=== PATIENT | female | born 1950 | race Two or more races ===

== ENCOUNTER 2017-07-28 16:34 | Inpatient (IN) | payer MEDICARE, OTHER ==
[2017-07-28] MEDS: SOD CHLORIDE 0.9% 500 ML IV (23:51)
[2017-07-28] MEDS: ONDANSETRON 4 MG INJ IV (23:51)
[2017-07-28] MEDS: morphine 4 MG/ML VIAL IV (23:51)
[2017-07-28 23:58] LABS: ADD MAN DIFF? NO
[2017-07-29 00:01] LABS: BASOPHIL # 0.1 10^3/ul (0.0-0.1); BASOPHILS % 0.6 % (0.0-2.0); EOSINOPHILS # 0.3 10^3/ul (0.0-0.5); HEMATOCRIT 36.6 % (37.0-47.0); HEMOGLOBIN 11.9 g/dl (12.0-16.0); LYMPHOCYTES # 3.1 10^3/ul (0.8-2.9); LYMPHOCYTES % 30.4 % (15.0-51.0); MEAN CORPUSCULAR HEMOGLOBIN 29.9 pg (29.0-33.0); MEAN CORPUSCULAR HGB CONC 32.5 g/dl (32.0-37.0); MEAN PLATELET VOLUME 9.9 fl (7.4-10.4); MONOCYTE # 0.7 10^3/ul (0.3-0.9); MONOCYTES % 6.5 % (0.0-11.0); PLATELET COUNT 222 10^3/UL (140-415); RED BLOOD COUNT 3.98 10^6/ul (4.20-5.40); RED CELL DISTRIBUTION WIDTH 13.6 % (11.5-14.5)
[2017-07-29 00:01] LABS: WHITE BLOOD COUNT 10.1 10^3/ul (4.8-10.8)
[2017-07-29 00:04] LABS: INR 1.09; PROTIME 14.2 Sec (11.9-14.9); PT RATIO 1.1
[2017-07-29 00:05] LABS: PARTIAL THROMBOPLASTIN TIME 29.9 Sec (25.0-35.0)
[2017-07-29 00:07] LABS: ALANINE AMINOTRANSFERASE 45 IU/L (13-69); ALBUMIN 4.2 g/dl (3.3-4.9); ALKALINE PHOSPHATASE 96 IU/L (42-121); ANION GAP 17 (8-16); ASPARTATE AMINO TRANSFERASE 60 IU/L (15-46); BLOOD UREA NITROGEN 36 mg/dl (7-20); CALCIUM 9.4 mg/dl (8.4-10.2); CARBON DIOXIDE 27 mmol/L (21-31); CHLORIDE 109 mmol/L (97-110); CREATININE 1.08 mg/dl (0.44-1.00); GLUCOSE 134 mg/dl (70-220); LIPASE 142 U/L (23-300); POTASSIUM 4.5 mmol/L (3.5-5.1); SODIUM 148 mmol/L (135-144); TOTAL PROTEIN 8.4 g/dl (6.1-8.1)
[2017-07-29 00:18] LABS: LACTIC ACID 1.3 mmol/L (0.5-2.0)
[2017-07-29 00:19] LABS: TROPONIN-I < 0.012 ng/ml (0.00-0.12)
[2017-07-29 00:25] LABS: ADD UMIC YES; UR ASCORBIC ACID 20 mg/dL (NEGATIVE); UR BILIRUBIN (Dip) NEGATIVE (NEGATIVE); UR BLOOD (Dip) 2+ mg/dL (NEGATIVE); UR CLARITY SLIGHTLY CLOUDY (CLEAR); UR COLOR YELLOW (YELLOW); UR GLUCOSE (Dip) NEGATIVE (NEGATIVE); UR KETONES (Dip) NEGATIVE (NEGATIVE); UR LEUKOCYTE ESTERASE (Dip) 3+ Leu/ul (NEGATIVE); UR NITRITE (Dip) NEGATIVE (NEGATIVE); UR RBC 12 /HPF (0-5); UR SPECIFIC GRAVITY (Dip) 1.013 (1.003-1.030); UR TOTAL PROTEIN (Dip) NEGATIVE (NEGATIVE); UR UROBILINOGEN (Dip) NEGATIVE (NEGATIVE); UR WBC 141 /HPF (0-5)
[2017-07-29] MEDS ORDERED: ACETAMINOPHEN 325 MG TAB PO (05:30)
[2017-07-29] MEDS ORDERED: NACL 0.9% 3 ML SYG IV (05:30)
[2017-07-29] MEDS ORDERED: ZOLPIDEM 5 MG TAB PO (05:30)
[2017-07-29] MEDS ORDERED: DOCUSATE SODIUM 100 MG CAP PO (05:30)
[2017-07-29] MEDS ORDERED: ONDANSETRON 4 MG INJ IV ×2 (05:30→11:30)
[2017-07-29] MEDS ORDERED: morphine 2 MG INJ IV (05:30)
[2017-07-29] MEDS: SOD CHLORIDE 0.45% 1,000 ML IV (05:58)
[2017-07-29] MEDS ORDERED: LIDOCAINE 2% (SDV) 5 ML INJ (07:00)
[2017-07-29] MEDS ORDERED: FENTAnyl 50 MCG/ML VIAL (10:53)
[2017-07-29] MEDS ORDERED: PROPOFOL 20 ML (11:07)
[2017-07-29] MEDS ORDERED: SUGAMMADEX SODIUM 200 MG/2 ML VIAL IV (11:07)
[2017-07-29] MEDS ORDERED: CEFAZOLIN 1 GM INJ (11:07)
[2017-07-29] MEDS ORDERED: ROCURONIUM 50 MG INJ (11:07)
[2017-07-29] MEDS ORDERED: SUCCINYLCHOLINE CHLORIDE 100 MG/5 ML SYG IV (11:07)
[2017-07-29] MEDS ORDERED: MEPERIDINE 25 MG INJ IV (11:30)
[2017-07-29] MEDS ORDERED: HYDROmorphONE (0.2 MG/ML) 10ML SYG IV ×2 (11:30)
[2017-07-29] MEDS ORDERED: METOCLOPRAMIDE 10 MG INJ IV (11:30)
[2017-07-29] MEDS ORDERED: DIPHENHYDRAMINE 50 MG INJ IV (11:30)
[2017-07-29] MEDS ORDERED: FENTAnyl 50 MCG/ML VIAL IV (11:30)
[2017-07-29] MEDS: FENTAnyl 50 MCG/ML VIAL IV (11:39)
[2017-07-29] MEDS: ATENOLOL 25 MG TAB PO (13:12)
[2017-07-29] MEDS: LOSARTAN 25 MG TAB PO (13:12)
[2017-07-29] MEDS: HYDROCHLOROTHIAZIDE 12.5 MG CAP PO (13:12)
[2017-07-30 05:58] LABS: ADD MAN DIFF? NO
[2017-07-30 06:05] LABS: WHITE BLOOD COUNT 8.7 10^3/ul (4.8-10.8)
[2017-07-30 06:05] LABS: BASOPHILS % 0.3 % (0.0-2.0); EOSINOPHILS # 0.3 10^3/ul (0.0-0.5); EOSINOPHILS % 3.4 % (0.0-7.0); HEMATOCRIT 35.2 % (37.0-47.0); HEMOGLOBIN 11.4 g/dl (12.0-16.0); LYMPHOCYTES # 2.6 10^3/ul (0.8-2.9); LYMPHOCYTES % 29.7 % (15.0-51.0); MEAN CORPUSCULAR HEMOGLOBIN 29.6 pg (29.0-33.0); MEAN CORPUSCULAR HGB CONC 32.4 g/dl (32.0-37.0); MEAN CORPUSCULAR VOLUME 91.4 fl (82.0-101.0); MEAN PLATELET VOLUME 9.8 fl (7.4-10.4); MONOCYTE # 0.6 10^3/ul (0.3-0.9); MONOCYTES % 6.9 % (0.0-11.0); NEUTROPHIL # 5.2 10^3/ul (1.6-7.5); NEUTROPHILS % 59.4 % (39.0-77.0); PLATELET COUNT 200 10^3/UL (140-415); RED BLOOD COUNT 3.85 10^6/ul (4.20-5.40); RED CELL DISTRIBUTION WIDTH 13.3 % (11.5-14.5)
[2017-07-30 07:16] LABS: ANION GAP 14 (8-16); BLOOD UREA NITROGEN 28 mg/dl (7-20); CALCIUM 8.9 mg/dl (8.4-10.2); CARBON DIOXIDE 28 mmol/L (21-31); CHLORIDE 109 mmol/L (97-110); CREATININE 1.01 mg/dl (0.44-1.00); GLUCOSE 133 mg/dl (70-220); MAGNESIUM 1.9 mg/dl (1.7-2.5); PHOSPHORUS 3.6 mg/dl (2.5-4.9); POTASSIUM 4.4 mmol/L (3.5-5.1); SODIUM 147 mmol/L (135-144)
[2017-07-30] MEDS: ATENOLOL 25 MG TAB PO (08:59)
[2017-07-30] MEDS: LOSARTAN 25 MG TAB PO (08:59)
[2017-07-30] MEDS: HYDROCHLOROTHIAZIDE 12.5 MG CAP PO (09:00)
[2017-07-30] MEDS: HYDROCODONE/APAP (5/325) TAB PO (12:54)
== END 2017-07-30 14:15 | disposition home or self-care (01) | DRG 744 ==
LOC: E/R 16:34 → MS2 07-29 02:05
PROVIDERS: Internal Medicine
PROC: 0UDB8ZZ Extraction of Endometrium, Via Natural or Artificial Opening Endoscopic (ICD-10-PCS; principal; 2017-07-29 10:47)
DX: N95.0 Postmenopausal bleeding (principal); E87.0 Hyperosmolality and hypernatremia; E66.01 Morbid (severe) obesity due to excess calories; Z68.38 Body mass index [BMI] 38.0-38.9, adult; N93.8 Other specified abnormal uterine and vaginal bleeding; D64.9 Anemia, unspecified; E86.0 Dehydration
CPT/HCPCS: 80048; 80053; 81001; 83605; 83690; 83735; 84100; 84484; 85025; 85610; 85730; 88305; 93005

== ENCOUNTER 2017-12-08 09:59 | Emergency (ER) | payer MEDICARE, OTHER ==
[2017-12-08 10:34] LABS: ADD MAN DIFF? NO
[2017-12-08 10:45] LABS: BASOPHILS % 0.4 % (0.0-2.0); EOSINOPHILS # 0.1 10^3/ul (0.0-0.5); EOSINOPHILS % 1.4 % (0.0-7.0); HEMATOCRIT 33.7 % (37.0-47.0); HEMOGLOBIN 10.9 g/dl (12.0-16.0); LYMPHOCYTES # 1.9 10^3/ul (0.8-2.9); LYMPHOCYTES % 19.8 % (15.0-51.0); MEAN CORPUSCULAR HGB CONC 32.3 g/dl (32.0-37.0); MEAN CORPUSCULAR VOLUME 89.6 fl (82.0-101.0); MEAN PLATELET VOLUME 9.9 fl (7.4-10.4); MONOCYTE # 0.9 10^3/ul (0.3-0.9); MONOCYTES % 9.1 % (0.0-11.0); NEUTROPHIL # 6.5 10^3/ul (1.6-7.5); NEUTROPHILS % 68.8 % (39.0-77.0); PLATELET COUNT 259 10^3/UL (140-415); RED BLOOD COUNT 3.76 10^6/ul (4.20-5.40); RED CELL DISTRIBUTION WIDTH 13.2 % (11.5-14.5)
[2017-12-08 10:45] LABS: WHITE BLOOD COUNT 9.5 10^3/ul (4.8-10.8)
[2017-12-08 11:04] LABS: ALANINE AMINOTRANSFERASE 41 IU/L (13-69); ALBUMIN 3.9 g/dl (3.3-4.9); ALBUMIN/GLOBULIN RATIO 0.86; ALKALINE PHOSPHATASE 94 IU/L (42-121); ANION GAP 18 (8-16); ASPARTATE AMINO TRANSFERASE 42 IU/L (15-46); BILIRUBIN,INDIRECT 0.4 mg/dl (0-1.1); BILIRUBIN,TOTAL 0.4 mg/dl (0.2-1.3); BLOOD UREA NITROGEN 38 mg/dl (7-20); CALCIUM 9.5 mg/dl (8.4-10.2); CARBON DIOXIDE 23 mmol/L (21-31); CHLORIDE 107 mmol/L (97-110); CREATININE 1.51 mg/dl (0.44-1.00); GLUCOSE 188 mg/dl (70-220); POTASSIUM 4.7 mmol/L (3.5-5.1); SODIUM 143 mmol/L (135-144); TOTAL PROTEIN 8.4 g/dl (6.1-8.1)
[2017-12-08 11:14] LABS: B-TYPE NATRIURETIC PEPTIDE 116 PG/ML (0-125); TROPONIN-I < 0.012 ng/ml (0.000-0.120)
[2017-12-08 11:45] LABS: ADD UMIC YES; UR ASCORBIC ACID NEGATIVE (NEGATIVE); UR BACTERIA FEW /HPF (NONE SEEN); UR BILIRUBIN (Dip) NEGATIVE (NEGATIVE); UR BLOOD (Dip) 3+ mg/dL (NEGATIVE); UR CLARITY CLOUDY (CLEAR); UR COLOR YELLOW (YELLOW); UR GLUCOSE (Dip) NEGATIVE (NEGATIVE); UR KETONES (Dip) NEGATIVE (NEGATIVE); UR LEUKOCYTE ESTERASE (Dip) 3+ Leu/ul (NEGATIVE); UR MUCUS FEW /HPF (NONE SEEN); UR NITRITE (Dip) POSITIVE (NEGATIVE); UR RBC 39 /HPF (0-5); UR SPECIFIC GRAVITY (Dip) 1.011 (1.003-1.030); UR TOTAL PROTEIN (Dip) NEGATIVE (NEGATIVE); UR UROBILINOGEN (Dip) NEGATIVE (NEGATIVE); UR WBC > 182 /HPF (0-5)
[2017-12-08] MEDS: SOD CHLORIDE 0.9% 1,000 ML IV (13:11)
[2017-12-08] MEDS: CEFTRIAXONE 1 GM/50 ML (PMX) 50 ML IVPB (13:12)
== END 2017-12-08 14:46 | disposition home or self-care (01) ==
LOC: E/R 09:59
DX: N30.00 Acute cystitis without hematuria (principal); I10 Essential (primary) hypertension; E11.9 Type 2 diabetes mellitus without complications; Z79.84 Long term (current) use of oral hypoglycemic drugs
CPT/HCPCS: 36415; 71045; 80053; 81001; 82962; 83880; 84484; 85025; 87086; 93005; 96374; 99285-25

== ENCOUNTER 2018-09-23 10:01 | Day surgery (SDC) | payer MEDICARE, OTHER ==
[2018-09-23] MEDS ORDERED: FENTAnyl 50 MCG/ML VIAL (14:56)
[2018-09-23] MEDS ORDERED: MIDAZOLAM 1 MG/ML 2 ML INJ (14:56)
[2018-09-23] MEDS: TRIAMCINOLONE ACET 40 MG/ML INJ (15:36)
[2018-09-23] MEDS ORDERED: CEFAZOLIN 1 GM INJ (15:47)
[2018-09-23] MEDS ORDERED: PROPOFOL 20 ML (15:47)
[2018-09-23] MEDS ORDERED: ONDANSETRON 4 MG INJ (15:47)
[2018-09-23] MEDS ORDERED: LIDOCAINE 2% (SDV) 5 ML INJ (15:47)
[2018-09-23] MEDS ORDERED: LABETALOL HCL 20MG INJ IV (16:30)
[2018-09-23] MEDS ORDERED: KETOROLAC 30 MG INJ IV (16:30)
[2018-09-23] MEDS ORDERED: FENTAnyl 50 MCG/ML VIAL IV (16:30)
[2018-09-23] MEDS ORDERED: MEPERIDINE 25 MG INJ IV (16:30)
[2018-09-23] MEDS ORDERED: DIPHENHYDRAMINE 50 MG INJ IV (16:30)
[2018-09-23] MEDS ORDERED: METOCLOPRAMIDE 10 MG INJ IV (16:30)
[2018-09-23] MEDS ORDERED: HYDROmorphONE 1 MG/5 ML IV SYRINGE IV ×2 (16:30)
[2018-09-23] MEDS ORDERED: hydrALAzine 20 MG INJ IV (16:30)
[2018-09-23] MEDS ORDERED: OXYCODONE/ACETAMINOPHEN (5/325) TAB PO (16:30)
[2018-09-23] MEDS ORDERED: ONDANSETRON 4 MG INJ IV (16:30)
== END 2018-09-23 18:50 | disposition home or self-care (01) ==
LOC: SDS 10:01
DX: N35.92 Unspecified urethral stricture, female (principal); N39.0 Urinary tract infection, site not specified; N20.0 Calculus of kidney; I10 Essential (primary) hypertension; E11.9 Type 2 diabetes mellitus without complications; E78.5 Hyperlipidemia, unspecified; J44.9 Chronic obstructive pulmonary disease, unspecified; Z79.84 Long term (current) use of oral hypoglycemic drugs
CPT/HCPCS: 52344; 82962; 87086